=== PATIENT | male | born 1995 | race Two or more races ===

== ENCOUNTER → 2022-03-20 | Emergency (ER) | payer BC ==
[~2022-03-20] VITALS: Ht 177.8 cm; Wt 53.5 kg
== END | disposition home or self-care (01) ==
LOC: ER 15:33 → EMR PED 15:33 → ER 19:34
DX: E10.649 Type 1 diabetes mellitus with hypoglycemia without coma (principal); Z96.41 Presence of insulin pump (external) (internal)